=== PATIENT | female | born 1950 | race Caucasian/White ===

== ENCOUNTER 2023-05-21 11:10 | Day surgery (SDC) | payer OTHER, SELFPAY ==
[2023-05-21 11:30] VITALS: BP 129/78; PULSE 72; RESP 16; TEMP 36.6; O2SAT 96; BMI 22.2
[2023-05-21] MEDS: TETRACAINE 0.5% OPHTH 1 DROP EYE-LEFT (11:40)
[2023-05-21] MEDS: KETOROLAC OPHTH 0.5% 1 DROP EYE-LEFT ×3 (11:40→11:50)
--- NOTE | 2023-05-21 11:51 | SUR.PREOP ---
The eye drops brought by the patient (Ketorolac, Moxifloxacin and Prednisolone) are examined and I have determined they are labeled by the patient's pharmacy for this patient as prescribed by the surgeon. The bottles are intact, recently obtained and appear to be correct.
[2023-05-21] MEDS: SODIUM CHLORIDE 0.9 % (FLUSH) 10 ML SYRINGE IVF (11:53)
[2023-05-21] MEDS: TETRACAINE 0.5% OPHTH 2 DROP EYE-LEFT (12:35)
[2023-05-21] MEDS: BALANCED SALT IRRIG SOLN 15 ML EYE-LEFT (12:38)
[2023-05-21] MEDS: TRYPAN BLUE 0.5 ML SYRINGE EYE-LEFT (12:39)
[2023-05-21] MEDS: BRIMONIDINE TARTRATE 0.2% OPHTH 1 DROP EYE-LEFT (12:53)
--- NOTE | 2023-05-21 12:56 | P.PCN_ITS ---
Procedure Note Date Seen: 05/21/23 Will [facility] bill your pro fee for this procedure?: No Pre-op diagnosis: combined cataract left eye Procedure: kpe with pc iol os Procedure Description: NAME OF PROCEDURE Kelman phacoemulsification, left eye, with posterior chamber lens implant. PREOPERATIVE DIAGNOSIS Nuclear sclerotic cortical combined cataract, left eye. POSTOPERATIVE DIAGNOSIS Nuclear sclerotic cortical combined cataract, left eye. INDICATIONS FOR PROCEDURE The patient has noted that his vision in the left eye is failing. Severity 7/10. Unable to correct with glasses/contact lenses; has disabling night glare when driving, difficulty reading. Because of this, the patient elected to proceed with surgical repair. I have explained the risks, benefits, alternative treatments to the patient including possible loss of the eye under correction, over correction, need for more surgery. The patient understands, accepts, and elects to proceed with surgical repair. PROCEDURE The left eye was dilated with a combination 1% Mydriacyl, 2.5% phenylephrine with topical Ocufen and Vigamox applied to the corneal surface. The patient was brought to the main operating room where under IV sedation, after pausing to identify the correct patient, correct intraoperative lens, power 12.5 diopters, the left eye was prepped and draped in usual sterile fashion for intraocular surgery. A lid speculum was placed and a paracentesis created at 6 o'clock. The chamber was filled with OVD air and trypan dye and entered temporally with a keratome. A continuous tear capsulotomy was performed. The nucleus was h ydrodissected and emulsified with local anesthetic and emulsified in a chop technique in the capsular bag. Residual cortex was cleaned. The capsule was clear. At this point, ZCBOO 12.5 diopter posterior chamber lens implant was injected into the capsular bag and was well centered. Residual OVD was cleaned from behind the implant from the capsular bag. The incision hydrated and noted to be leak free. Topical Alphagan, pilocarpine, and Vigamox were applied to the corneal surface and the patient returned to recovery in good condition having tolerated the procedure well. CONDITION ON DISCHARGE Satisfactory. next
--- NOTE | 2023-05-21 12:58 | P.ANES_ITS ---
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
[2023-05-21 13:08] VITALS: BP 127/81; PULSE 74; RESP 16; TEMP 36.5; O2SAT 96
== END 2023-05-21 13:29 | disposition home or self-care (01) ==
PROVIDERS: PCP Family Medicine; Visit Provider Ophthalmology
PROC: (CPT 66984; principal; 2023-05-21 12:30)
DX: H25.812 Combined forms of age-related cataract, left eye (principal)
CPT/HCPCS: 66984; 00142; 99100; A9270; J2250; J3010; S0020; V2632

== ENCOUNTER 2023-06-18 11:11 | Day surgery (SDC) | payer OTHER, SELFPAY ==
[2023-06-18] MEDS: TETRACAINE 0.5% OPHTH 1 DROP EYE-RIGHT (11:22)
[2023-06-18 11:28] VITALS: BMI 22.1
[2023-06-18] MEDS: KETOROLAC OPHTH 0.5% 1 DROP EYE-RIGHT ×3 (11:29→11:49)
[2023-06-18 11:33] VITALS: BP 122/67; PULSE 65; RESP 16; TEMP 36.5; O2SAT 98
[2023-06-18] MEDS: SODIUM CHLORIDE 0.9 % (FLUSH) 10 ML SYRINGE IVF (11:58)
--- NOTE | 2023-06-18 12:29 | W.ANESCHARGE ---
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
[2023-06-18] MEDS: TETRACAINE 0.5% OPHTH 2 DROP EYE-RIGHT (12:46)
--- NOTE | 2023-06-18 12:48 | W.ANESCHARGE ---
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
[2023-06-18] MEDS: TRYPAN BLUE 0.5 ML SYRINGE EYE-RIGHT (12:49)
[2023-06-18] MEDS: BALANCED SALT IRRIG SOLN 15 ML EYE-RIGHT (12:50)
[2023-06-18] MEDS: BRIMONIDINE TARTRATE 0.2% OPHTH 1 DROP EYE-RIGHT (13:00)
--- NOTE | 2023-06-18 13:05 | PM.PROC ---
Procedure Note Date Seen: 06/18/23 Date of procedure: 06/18/23 Will [facility] bill your pro fee for this procedure?: No Pre-op diagnosis: combined form of cataract right eye Post-op diagnosis: other (pseudophakia right eye) Procedure Description: NAME OF PROCEDURE Richi phacoemulsification, right eye, with posterior chamber lens implant. PREOPERATIVE DIAGNOSIS Nuclear sclerotic cortical combined cataract, right eye. POSTOPERATIVE DIAGNOSIS Nuclear sclerotic cortical combined cataract, right eye. INDICATIONS FOR PROCEDURE The patient has noted that his vision in the right eye is failing. Severity 8/10. Unable to correct with glasses/contact lenses; has disabling night glare when driving, difficulty reading. Because of this, the patient elected to proceed with surgical repair. I have explained the risks, benefits, alternative treatments to the patient including possible loss of the eye under correction, over correction, need for more surgery. The patient understands, accepts, and elects to proceed with surgical repair. PROCEDURE The right eye was dilated with a combination 1% Mydriacyl, 2.5% phenylephrine with topical Ocufen and Vigamox applied to the corneal surface. The patient was brought to the main operating room where under IV sedation, after pausing to identify the correct patient, correct intraoperative lens, power 14.0 diopters, the right eye was prepped and draped in usual sterile fashion for intraocular surgery. A lid speculum was placed and a paracentesis created at 12 o'clock. The chamber was filled with OVD and entered temporally with a keratome. A continuous tear capsulotomy was performed. The nucleus was hydrodissected and emulsified with local anesthetic and emulsified in a chop technique in the capsular bag. Residual cortex was cleaned. The capsule was clear. At this point, ZCBOO 14.0 diopter posterior chamber lens implant was injected into the capsular bag and was well centered. Residual OVD was cleaned from behind the implant from the capsular bag. The incision hydrated and noted to be leak free. Topical Alphagan, pilocarpine, and Vigamox were applied to the corneal surface and the patient returned to recovery in good condition having tolerated the procedure well. CONDITION ON DISCHARGE Satisfactory.
[2023-06-18 13:20] VITALS: BP 136/75; PULSE 66; RESP 16; TEMP 36.4; O2SAT 97
== END 2023-06-18 13:25 | disposition home or self-care (01) ==
PROVIDERS: PCP Family Medicine; Visit Provider Ophthalmology
PROC: (CPT 66984; principal; 2023-06-18 12:30)
DX: H25.11 Age-related nuclear cataract, right eye (principal)
CPT/HCPCS: 66984; 00142; 99100; A9270; J2250; J3010; S0020; V2632

== ENCOUNTER 2024-03-15 09:23 | Outpatient (CLI) | payer OTHER, SELFPAY ==
--- OUTSIDE RECORDS SUMMARY | 2024-03-17 01:49 | XMS_ITS | Clinical Summary ---
Author Organization [employer] [facility] Address [place], [place] [address] Care Team Providers Care Shipbuilding Draftsperson Name Role Phone Arron Lima MD Primary [...] Infiltrating ductal carcinoma with apocrine features a. [place] grade: II of III, [place] score: 6 of 9 b. Angio-lymphatic invasion: [...] Encounters Date Type Department Care Team Description 03/16/2024 Telephone [facility] [address] [place] [address] Lottie Sherman NP Hospital F/U 03/15/2024 Nurse Triage [facility] [address] [place] [address] Connie Suarez, ZHANNA Stroke (Patient walked in thinking she is having a stroke/) 12/22/2023 1:00 PM CDT Nurse/Clinic Staff Only [facility] [address] [place] [address] Immunization/Inject ion (2ND TWINRIX VACCINE PER DR. GRANADOS ); Immunization/Inject ion 12/22/2023 Travel from Last 3 Months Immunizations Name Administration Dates Next Due COVID-19 vaccine (Moderna 100mcg/0.5mL) PF, MDV 12/31/2021 COVID-19 vaccine (TheraCoat-Bio NTech 30mcg/0.3mL) 12YO+ BIVALENT PF, MDV 02/11/2023 COVID-19 vaccine (TheraCoat-Bio NTech 30mcg/0.3mL) PF, MDV 06/21/2021,12/12/2020,11/21/2020 HepA-HepB (Twinrix) [...] ca ncer Maternal Aunt Mother (Age 80) [place] Neg. 1 Neg. 2 Sister 1 Sister [...] Comments Blood Pressure 119/72 11/21/2023 1:06 PM RETAIL [employer]NER Pulse 86 11/21/2023 1:06 PM [employer]AIL [employer]NER Temperature 36.4 ??C (97.5 ??F) 11/21/2023 1:09 PM CS T Respiratory Rate - - Oxygen Saturation 98% 11/21/2023 1:06 PM RETAIL PL[employer]NER Inhaled Oxygen Concentration - - Weight 57.4 kg (126 lb 9.6 oz) 11/21/2023 1:06 P M [employer]AIL [employer]NER Height 160 cm (5' 2.99) 05/19/2023 11:03 AM CDT Body Mass Index 22.43 05/19/2023 11:03 AM CDT Plan of Treatment Upcoming Encounters Date Type Department Care Team (Late st Contact Info) Description 03/18/2024 4:10 PM CDT Office Visit [facility] [address] [place] [address] Arron Lima MD [address] [place] [address] 05/27/2024 1:30 PM CDT Nurse/Clinic Staff Only [facility] [address] [place] [address] Health Maintenance Due Date Last Done Comments Pneumococcal series for age 65+ (1 of 1 - PCV) 2015 Mammogram for age 45-75 02/07/2023 02/08/20, 09/24/2016, 10/21/2014, Additional history exists COVID-19 vaccine series ( season) 2023 07/22/2023, 02/11/2023, 06/19/2022, Additional history [...] breast ANTI HCV Routine 09/24/2016 8:31 AM RETAIL PLANNER Need for hepatitis C screening test from Last 3 Months or Most Recently Relevant to Health Maintenance Results * OCCULT BLOOD IFOBT STOOL (02/15/2023 4:09 PM CDT) STOOL BLOOD ,IFOBT Negative Negative 02/21/2023 8:17 AM CDT [facility] Stool STOOL SPECIMEN / Unknown Non-Blood / Unknown 02/15/2023 4:09 PM CDT 02/19/2023 4:10 PM CDT Arron Lima MD [facility] [address] [place] [address], * LIPID PANEL W REFLEX MEASURED LDL (02/11/2023 4:25 PM CDT) CHOLESTEROL,TOTAL 170 100 - 199 mg/dL 02/12/2023 3:29 PM CDT [facility] Comment: Cholesterol, Total Reference Ranges Desirable <200 mg/dL Borderline 200-239 mg/dL High >=240 mg/dL TRIGLYCERIDES 120 <150 mg/dL 02/12/2023 3:29 PM CDT [facility] HDL CHOLESTEROL 62 >40 mg/dL 3:29 PM CDT [facility] NON-HDL CHOLESTEROL 108 <145 mg/dl 02/12/2023 3:29 PM CDT [facility] CHOL/HDL RATIO 2.74 <4.50 02/12/2023 3:29 PM CDT [facility] LDL CHOLESTEROL 84 <=130 mg/dL 02/12/2023 3:29 PM CDT [facility] VLDL CHOLESTEROL 24 <=30 mg/dL 02/12/2023 3:29 PM CDT [facility] PROVIDER ORDERED STATUS RANDOM 02/12/2023 3:29 PM CDT [facility] Blood BLOOD SPECIMEN / Unknown Venipuncture / Unknown 02/11/2023 4:25 PM CDT 02/11/2023 4:26 PM CDT Arron Lima MD CHEMISTRY [facility] [address] [place] [address], [place] * (ABNORMAL) XR DXA BONE DENSITY [...] if therapy initiated to assess therapeutic efficacy. Margaret Sethi PA-C Narrative 02/08/2022 10:56 AM CDT For Patients: Results are automatically released to your [facility] account once available, in compliance with federal regulations. This means that you may see your results before your provider has had a chance to review them. Please allow 2-3 business days for your provider to comment on the results. XR DXA Bone Mineral Density (BMD) EXAM LOCATION: [address] [address] PATIENT NAME: Hamida Diaz DATE OF : [...] two scanners are made by the same supervising deputy. PROCEDURE: Dual-energy x-ray absorptiometry performed with routine [...] Z-Score: + 0.0 Change from prior in 2015: ??Decrease 3.6%. Right femoral neck BMD: 0.804 g/cm2 T-Score: - 1.7 Z-Score: + 0.3 Change from prior in 2014: ??Decrease 4.1%. Left hip BMD: 0.733 g/cm2 [...] For Patients: As a result of the Century Cures Act, medical imaging exams and procedure reports are released immediately into your electronic medical record. You may view this report before your referring provider. If you have questions, please contact your health care provider. XR MAMMO NICOLA BILAT SCREEN [[id number]] CLINICAL HISTORY: ??This is an asymptomatic 71 y.o. patient. INDICATION FOR EXAM: Mammogram Screening. TECHNIQUE: CC & MLO views were obtained. ??This study was evaluated with the assistance of Computer-Aided Detection. Breast Tomosynthesis was used in interpretation. COMPARISON FILM: Yes 09/24/16 [facility] 10/21/14 [facility] FINDINGS: ??The breasts are heterogeneously dense, which may obscure small masses. There are no dominant masses, suspicious micro calcifications or areas of architectural distortion. Arron Lima MD MAMMO * ANTI HCV (09/24/2016 8:31 AM RETAIL PLANNER) HEPATITIS C ANTIBODY Non-Reacti ve Non-Reacti ve 09/24/2016 2:05 PM RETAIL [employer]NER [facility] Blood BLOOD SPECIMEN / Unknown Venipuncture / Unknown 09/24/2016 8:31 AM RETAIL PLANNER 09/24/2016 8:31 AM RETAIL PL[employer]NER Narrative [facility] - 09/24/2016 2:05 PM RETAIL [employer]NER Antibodies to HCV not detected; does not exclude the possibility of exposure to HCV. Arron Lima MD SEND OUTS [facility] 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
== END 2024-03-15 09:24 | disposition home or self-care (01) ==
LOC: AMB 03-17 01:47
PROVIDERS: PCP Family Medicine; Visit Provider Emergency Medicine
DX: R41.82 Altered mental status, unspecified (principal); R20.2 Paresthesia of skin
CPT/HCPCS: A0425; A0427

== ENCOUNTER 2024-03-15 09:50 | Emergency (ER) | payer OTHER, SELFPAY ==
[2024-03-15 09:55] VITALS: BP 156/77; PULSE 70; RESP 18
[2024-03-15 09:59] VITALS: BP 156/77; PULSE 75; RESP 18; TEMP 36.7; O2SAT 97; BMI 21.0
--- NOTE | 2024-03-15 10:01 | ED.GENADULT ---
HPI - General Adult General Date Seen: 03/15/24 Chief complaint: Weakness Stated complaint: weakness Time Seen by Provider: 03/15/24 10:01 History of Present Illness HPI narrative: This is a 73-year-old female who was referred to the ER today from the [facility] clinic for possible stroke symptoms. A stroke team activation occurred when the patient arrived. I evaluated the patient briefly before she went to CT scan. Patient has a past medical history of breast cancer, diagnosed and treated in 2010 and now thought to be in remission for over a decade. She says she is otherwise healthy. No history of any hypertension, dyslipidemia, coronary disease, AFib, previous history of strokes. No history of diabetes. The weight she does not take any long-term prescription medications. Her fell last week and so she was bringing him to the clinic this morning to be checked out. A flu she was helping loading him into the car because he needs a lot of assistance and was feeling normally this morning. She and her left home shortly before 9:00 a.m. and within a few blocks of leaving the home she began to have symptoms. She felt dizzy and unsteady and she felt like she was little bit weak and tingly in her left arm. She was worried she may not be able to drive to the clinic but ultimately she got well enough that she did drive all the way to the clinic. When she arrived to the clinic she was apparently found to have some asymmetric left hand spring repairer strength weakness and possibly a left facial droop so she was referred here to the ER right away for stroke team evaluation. Her symptoms cap slowly improving so by Around the time she got here to the ER she says her left-sided weakness is gone. She still perhaps has some very mild unsteadiness but actually feels fine while she is resting in bed. She does not know if she would feel unsteady if she got up to walk or not. No other symptoms. No headache. No visual disturbance. No leg weakness. No chest pain. No palpitations. No shortness of breath. No fever. No recent falls. No neck pain. She has no history of diabetes, hypertension, high cholesterol. Her mother of a stroke in her 80s. Her father had possibly CHF. Medical record for the patient access through [facility]. She is currently on calcium/vitamin-D, Diamox Related Data Home Medications ?Medication ?Instructions ?Recorded ?Confirmed calcium carb-ergocalciferol (vit 1 tab PO DAILY 05/20/23 06/18/23 D2) 600 mg calcium-200 unit tablet Previous Rx's ?Medication ?Instructions ?Recorded clopidogrel 75 mg tablet (Plavix) 75 mg PO DAILY #28 tabs 03/15/24 Allergies Allergy/AdvReac Type Severity Reaction Status Date / Time No Known Drug Allergies Allergy Verified 03/15/24 10:05 [facility] Medical History (Updated 03/15/24 @ 12:46 by Je Robin MD) Breast cancer ?C50.919 - Malignant neoplasm of unspecified site of unspecified female breast (ICD-10) Prediabetes ?R73.03 - Prediabetes (ICD-10) Osteoporosis ?M81.0 - Age-related osteoporosis without current pathological fracture (ICD-10) Surgical History History of tonsillectomy and adenoidectomy ?Z90.89 - Acquired absence of other organs (ICD-10) Hx of section ?Z98.891 - History of uterine scar from previous surgery (ICD-10) History of lumpectomy of left breast ?Z98.890 - Other specified postprocedural states (ICD-10) Social History Smoking Status: Never smoker How often do you have a drink containing alcohol: monthly or less How many standard drinks containing alcohol do you have on a typical day: 1 or 2 How often do you have six or more drinks on one occasion: Never AUDIT-C Alcohol total score: 1 Non-prescribed substance use: denies use Caffeine: Yes Are you using contraception or practicing any form of control: No Exam Narrative: Exam Narrative: Primary Survey: A- patent. Speaking clearly. Phonation normal. No stridor. B- breathing easily. Lung sounds clear and equal. Oxygen saturation normal on room air C- no active bleeding. Blood pressure stable. Symmetric pulses and cap refill in 4 extremities. D- alert and oriented x3. GCS 15. No focal deficits. Constitutional: Appears well-developed and well-nourished. Alert. Conversant, and polite. She has a fairly detailed, chronological historian.. Non toxic. HENT: Head: Atraumatic. Nose: Nose normal. Mouth/Throat: Oral mucosa is clear and moist. no trismus. Pharynx normal. Tonsils symmetric. No tonsillar enlargement, erythema, or exudate. Eyes: Conjunctivae normal. EOM normal. Pupils equal, round, and reactive to light. No scleral icterus. Neck: Normal range of motion. Neck supple. No tracheal deviation present. No JVD Cardiovascular: Normal rate, regular rhythm. No gallop. No friction rub. No murmur heard. Symmetric radial artery pulses Pulmonary/Chest: Effort normal. No stridor. No respiratory distress. No wheezes. No rales. No rhonchi . No tenderness. Abdominal: Soft.No distension. No mass. No tenderness. No rebound. No guarding. Musculoskeletal: RUE: Normal range of motion. No tenderness. No deformity LUE: Normal range of motion. No tenderness. No deformity RLE: Normal range of motion. No edema. No tenderness. No deformity LLE: Normal range of motion. No edema. No tenderness. No deformity Skin: Skin is warm and dry. No rash noted. No pallor. Normal capillary refill. Psychiatric: Normal mood. Normal affect. Neurological: Mental status normal. Attention normal. Alert and oriented x3. GCS 15. Memory normal. Speech fluent. Cognition normal. Cranial Nerves intact II-XII except I did not formally test gag or visual acuity. EOMI. Palate elevates symmetrically and tongue protrudes in the midline. Strength: 5/5 trapezius on the right and left 5/5 deltoid on the right and left 5/5 biceps on the right and left 5/5 triceps on the right and left 5/5 hand spring repairer on the right and left 5/5 thumb opposition on the right and left 5/5 finger abduction on the right and left 5/5 hip flexors (L3) on the right and left 5/5 quadriceps (L4) on the right and left 5/5 tibialis anterior on the right and left 5/5 EHL (L5) on the right and left 5/5 gastrocnemius (S1) on the right and left 5/5 hamstring on the right and left Sensation intact to light touch in both upper extremities (C4-T1) Sensation intact to light touch in Both lower extremities (L4-S1). Finger to nose and coordination normal. Gait normal, but the patient says she feels symptomatically lightheaded when standing up. No ataxia. NIHSS = 0 Const: Vital Signs, click to edit/add: Vital Signs - 24 hr 03/15/24 09:59 Temperature 98.0 F Pulse Rate [Right Pulse Oximeter] 75 Respiratory Rate 18 Blood Pressure [Ri ght Upper Arm] 156/77 H Pulse Oximetry 97 Oxygen Delivery Me thod Room Air Course Vital Signs Vital signs: Initial Vital Signs Temperature 98.0 F 03/15/24 09:59 Temperature Source Temporal Artery Scan 03/15/24 09:59 Pulse Rate 75 03/15/24 09:59 Pulse Rhythm Regular 03/15/24 09:59 Respiratory Rate 18 03/15/24 09:59 Blood Pressure 156/77 H 03/15/24 09:59 Blood Pressure Mean 103 03/15/24 09:59 Blood Pressure Position Supine 03/15/24 09:59 Pulse Oximetry 97 03/15/24 09:59 Oxygen Delivery Method Room Air 03/15/24 09:59 Vital Signs Temperature 98.0 F 03/15/24 09:59 Pulse Rate 75 03/15/24 09:59 Respiratory Rate 18 03/15/24 09:59 Blood Pressure 156/77 H 03/15/24 09:59 Pulse Oximetry 97 03/15/24 09:59 Oxygen Delivery Method Room Air 03/15/24 09:59 Temperature 98.0 F 03/15/24 09:59 Pulse Rate 75 03/15/24 09:59 Respiratory Rate 18 03/15/24 09:59 Blood Pressure 156/77 H 03/15/24 09:59 Pulse Oximetry 97 03/15/24 09:59 Oxygen Delivery Method Room Air 03/15/24 09:59 Medications Administered Medications: Discontinued Medications Generic Name Dose Route Start Last Admin Trade Name Freq PRN Reason Stop Dose Admin Aspirin 325 mg 03/15/24 11:01 03/15/24 12:00 Aspirin Ec 325 Mg Tablet PO 03/15/24 11:02 325 mg ONCE ONE Administration Clopidogrel Bisulfate 300 mg 03/15/24 11:01 03/15/24 11:13 Clopidogrel 300 Mg Tablet PO 03/15/24 11:02 300 mg ONCE ONE Administration Sodium Chloride 1,000 mls @ 1,000 mls/hr 03/15/24 10:45 03/15/24 12:40 0.9 % Sodium Chloride 1000 Ml IV 03/15/24 11:44 Infused .Q1H RADHA Infusion Medical Decision Making MDM Narrative Medical decision making narrative: Very pleasant 73-year-old female was referred to the ER today from clinic for evaluation of acute onset of neurologic symptoms including dizziness as well as left facial droop and left arm weakness and numbness that occurred this morning 1st beginning shortly before 9:00 a.m. while she was driving her his doctor appointment. She had detectable symptoms when she was at the [facility] clinic but symptoms had essentially resolved by the time she arrived here in the ER and we were activating her stroke team. History is consistent with TIA. Head CT is negative for intracranial hemorrhage. CT angiogram of her head neck shows no LVO or any high-grade stenosis requiring carotid endarterectomy. Brain MRI confirms no acute infarct. EKG shows sinus rhythm. Blood pressure is marginally 145/80. The ABCD2 score is 5 which does put her at high risk. In discussion with Stroke Neurology, Dr. Case, plan of care will be to initiate dual anti-platelet therapy. She received aspirin 325 mg p.o. here in the ER as well as a 300 mg Plavix load. She will continue on dual anti-platelet therapy-aspirin 325mg daily and Plavix 75 mg daily for the next 4 weeks. She already has an appointment set up on with her primary care provider for further workup. They will consider getting outpatient echocardiogram an outpatient Holter monitor look for paroxysmal AFib. She will also call to schedule her follow-up appointment with the [facility] stroke/TIA [facility]. She will call the number today to set up an appointment for further evaluation. Discussed with the patient that with a TIA there is risk for recurrent stroke or TIA and she will return to the ER immediately with any recurrent neurologic symptoms, or if she has any other concerns. Incidental note is made of a nodule adjacent to her parotid gland. She indicates that this is been palpably present and stable for several years. Nonetheless she will follow up outpatient with her primary care provider for further evaluation with ultrasound as suggested by Radiology. Lab Data Labs: Lab Results 03/15/24 03/15/24 03/15/24 Range/Units 10:10 10:14 10:30 WBC 7.63 (4.50-11.00) K/uL RBC 4.65 (4.00-5.20) m/uL Hgb 13.7 (12.0-16.0) gm/dL Hct 41.7 (33.0-51.0) % MCV 90 (80-100) fL MCH 30 (26-34) pg MCHC 33 (32-36) gm/dL RDW Coeff of Nitesh 13.1 (11.5-15.5) % Plt Count 233 (140-440) K/uL Neut % (Auto) 69.5 (42.0-72.0) % Lymph % (Auto) 20.1 (20-44) % [place] % (Auto) 6.6 (0.0-11.0) % Eos % (Auto) 3.4 (0.0-7.0) % Baso % (Auto) 0.3 (0.0-3.0) % Neut # (Auto) 5.31 (1.7-7.0) K/uL Lymph # (Auto) 1.53 (0.90-2.90) K/uL [place] # (Auto) 0.50 (0.00-0.90) K/UL Eos # (Auto) 0.26 (0.00-0.50) K/uL Baso # (Auto) 0.02 (0.00-0.30) K/uL Abs Immat Gran (auto) 0.01 (0.00-0.30) K/uL Imm/Tot Granulo (auto) 0.1 % INR 0.92 (0.91-1.10) Sodium 141 (135-149) mmol/L Potassium 3.9 (3.6-5.1) mmol/L Chloride 106 (96-114) mmol/L Carbon Dioxide 29 (20-32) mmol/L Anion Gap 6 L (7-15) mEq/L BUN 16 (7-30) mg/dL Creatinine 0.7 (0.5-1.5) mg/dL Estimated Creat Clear 46.64 Estimated GFR 91 ml/min Glucose 96 (60-115) mg/dL Lactate 1.7 (0.5-1.9) mmol/L Calcium 9.3 (8.4-10.6) mg/dL Troponin I < 0.01 L (0.01-0.04) ng/mL POC Creatinine 0.8 (0.6-1.3) mg/dl Imaging Data MR brain: Attestation: I have reviewed the pertinent imaging results. Radiologist's impression: Impression: 1. No acute/subacute infarct. 2. Mild chronic ischemic microvascular disease. CTA Head: Attestation: I have reviewed the pertinent imaging results. Radiologist's impression: IMPRESSION: Patent proximal intracranial vasculature without intracranial aneurysms. CT A neck: Attestation: I have reviewed the pertinent imaging results. Radiologist's impression: IMPRESSION: Patent cervical vasculature. CT scan - head: Attestation: I have reviewed the pertinent imaging results. Radiologist's impression: IMPRESSION: 1. No acute hemorrhage or large territory infarct. 2. 1.4 centimeter left parotid lesion. Consider outpatient ultrasound for further evaluation. Discharge Plan Discharge Clinical Impression: Transient ischemic attack, Lesion of parotid gland Patient Disposition: Home, Self-Care Condition: Stable Instructions: Transient Ischemic Attack (ED) Additional Instructions: As we discussed, please return to the ER immediately if you have any recurrent stroke symptoms so or any other concerns. To help prevent recurrent strokes you should start on aspirin 325 mg once daily and Plavix 75 mg daily. You can use enteric coated aspirin to help reduce stomach upset. Plavix is a prescription medication and you can peanut picker his prescription at [place]. Take your next dose of Plavix tomorrow morning. Please follow-up with your regular doctor on for a checkup. Your doctor will likely arrange outpatient heart monitor and possibly an echocardiogram. Also ask your doctor to arrange an ultrasound for your left parotid gland. Also please follow-up with the [facility] stroke/TIA Clinic. Call [phone] to arrange a ER follow-up appointment. Prescriptions: New clopidogrel [Plavix] 75 mg tablet 75 mg PO DAILY Qty: 28 2RF No Action calcium carbonate-vitamin D2 600 mg calcium- 200 unit tablet 1 tab PO DAILY Follow Up/Referrals: Arron Lima MD [Primary Care Provider] - Stand Alone Forms: [employer] Info Instructions
[2024-03-15 10:13] VITALS: BP 145/82; PULSE 79
--- NOTE | 2024-03-15 10:13 | CRLHL7_ITS ---
For Patients: As a result of the Century Cures Act, medical imaging exams and procedure reports are released immediately into your electronic medical record. You may view this report before your referring provider. If you have questions, please contact your health care provider. CT ANGIOGRAM NECK DATE: 03/15/2024 CLINICAL HISTORY: Patient with focal neurological deficits. TECHNIQUE: Standard helical CT image acquisition of the neck up to the skull base after bolus intravenous contrast enhancement. 2D and 3D MIP images for post-processing were performed and interpreted on an independent workstation and 3D images were permanently archived. COMPARISON: CT same day. FINDINGS: The origins of the great vessels from the aortic arch are patent. The origin of the right vertebral artery is patent. The origin of the left vertebral artery is patent. The common carotid arteries are patent. There is no stenosis at the origin of the right internal carotid artery. There is no stenosis at the origin of the left internal carotid artery. The rest of the cervical segments of the internal carotid arteries are patent up to the skull base. The right vertebral artery is dominant. The cervical segments of the vertebral arteries are patent up to the skull base. The visualized lung apices are unremarkable. The thyroid gland demonstrates an 8mm hypodense nodule in its left lobe, likely a cyst. The soft tissues of the neck are unremarkable. There are degenerative changes in the cervical spine. IMPRESSION: Patent cervical vasculature. Findings were communicated to Dr. Case at 10:40 AM. Please note that all CT scans at this facility use dose modulation, iterative reconstruction, and/or weight-based dosing when appropriate to reduce radiation dose to as low as reasonably achievable. Dictated by: Pippa Ny MD @ 03/15/2024 10:40:51 (Electronically Signed)
--- NOTE | 2024-03-15 10:14 | CRLHL7_ITS ---
For Patients: As a result of the Century Cures Act, medical imaging exams and procedure reports are released immediately into your electronic medical record. You may view this report before your referring provider. If you have questions, please contact your health care provider. INDICATION: left facial droop, left arm weakness, unsteadiness TECHNIQUE: CT of the head was performed without IV contrast. COMPARISON: None. FINDINGS: Parenchyma: No acute hemorrhage, infarction, or mass. Mild scattered periventricular white matter hypoattenuation is nonspecific and is favored to represent chronic small vessel ischemic disease. Ventricles and extra-axial spaces: Appropriate for age. Visualized paranasal sinuses: Moderate left maxillary sinus mucosal retention cyst versus polyp. Mastoid air cells: Clear. Bones: No focal abnormality. Additional comment: Bilateral lens surgery. 1.4 centimeter left parotid lesion (5/4). IMPRESSION: 1. No acute hemorrhage or large territory infarct. 2. 1.4 centimeter left parotid lesion. Consider outpatient ultrasound for further evaluation. Please note that all CT scans at this facility use dose modulation, iterative reconstruction, and/or weight-based dosing when appropriate to reduce radiation dose to as low as reasonably achievable. Dictated by Yovani Grewal MD @ 03/15/2024 10:30:37 AM (Electronically Signed)
--- NOTE | 2024-03-15 10:14 | CRLHL7_ITS ---
For Patients: As a result of the Century Cures Act, medical imaging exams and procedure reports are released immediately into your electronic medical record. You may view this report before your referring provider. If you have questions, please contact your health care provider. CT ANGIOGRAM HEAD DATE: 03/15/2024 CLINICAL HISTORY: Patient with focal neurological deficits. TECHNIQUE: Standard helical CT image acquisition through the intracranial circulation following intravenous administration of contrast material with bolus tracking. 2D and 3D MIP images for post-processing were performed and interpreted on an independent workstation and 3D images were permanently archived. COMPARISON: CT same day. FINDINGS: There is no proximal intracranial large vessel occlusion. There is no intracranial aneurysm. The right internal carotid artery is normal. The right middle cerebral artery and its branches are normal. The right anterior cerebral artery and its branches are normal. The left internal carotid artery is normal. The left middle cerebral artery and its branches are normal. The left anterior cerebral artery and its branches are normal. The anterior communicating artery is well visualized and appears normal. The right vertebral artery and PICA are normal. The left vertebral artery and PICA are normal. The right vertebral artery is dominant. The basilar artery is patent and appears normal. The right posterior cerebral artery is normal. The left posterior cerebral artery is normal. The visualized venous structures are patent. IMPRESSION: Patent proximal intracranial vasculature without intracranial aneurysms. Findings were communicated to Dr. Case at 10:40 AM. Please note that all CT scans at this facility use dose modulation, iterative reconstruction, and/or weight-based dosing when appropriate to reduce radiation dose to as low as reasonably achievable. Dictated by: Pippa Ny MD @ 03/15/2024 10:42:00 (Electronically Signed)
[2024-03-15 10:32] LABS: Creatinine, Point-of-Care* 0.8 mg/dl (0.6-1.3)
--- OUTSIDE RECORDS SUMMARY | 2024-03-15 10:35 | XMS_ITS | Clinical Summary ---
Author Organization [facility] Address [place], [place] [address] Care Team Providers Care Furniture Builder Name Role Phone Arron Lima MD Primary Care Provider Allergies No known active allergies Medications Medication Sig Dispensed Refills Start Date End Date Status CALCIUM + VITAMIN D 600 MG (1,500)-200 UNIT TABIndications:Osteop orosis, unspecified 0 05/30/2008 Activ e acetaZOLAMIDE (DIAMOX) 125 mg tabletIndications:Cou nseling about travel Take 125-250 mg by mouth two times daily. Begin 1 day before through 2 days after arriving at highest altitude. 10 Tablet 11/21/2023 Active typhoid vaccin,live,attenuate d (Vivotif Martha Vaccine) 2 billion unit capsuleIndications:Ty phoid-paratyphoid vaccination Take 1 capsule by mouth with lukewarm water on empty stomach on days 1,3,5 and 7. 4 Capsule 11/21/2023 Active Active Problems Problem Noted Date Diagnosed Date Prediabetes 06/01/2018 Trigger finger 10/22/2014 Breast cancer 04/09/2011 Overview: Left breast cancer. 02/2011 1. Infiltrating ductal carcinoma with apocrine features a. [place] grade: II of III, [place] score: 6 of 9 b. Angio-lymphatic invasion: Absent c. Associated DCIS: Present d. Subtype of DCIS: Cribriform and apocrine e. Grade of DCIS: 3 estrogen receptor: NEGATIVE (0.0% of tumor nuclear area) Progesterone receptor: NEGATIVE (0.0% of tumor nuclear area) HER2 amplification: NEGATIVE (1.18 HER2/CEP17 ratio by FISH) Osteoporosis, unspecified 12/01/2006 Overview: dexa 2006 t score of spine -2.5, improved from 2004 after being on estrogen Resolved Problems Problem Noted Date Diagnosed Date Resolved Date Distal radial fracture 09/09/201203/05 Trapezium fracture 09/09/2012 5 Headache(784.0) 05/31/2009 10/21/2014 Overview: Improved with hrt Symptomatic menopausal or fe male climacteric states 12/01/2006 01/31/2021 Encounters Date Type Department Care Team Description 03/15/2024 Nurse Triage [facility] [address] [place] [address] Connie Suarez RN Stroke (Patient walked in thinking she is having a stroke/) 12/22/2023 1:00 PM CDT Nurse/Clinic Staff Only [facility] [address] [place] [address] Immunization/Injecti on (2ND TWINRIX VACCINE PER DR. GRANADOS ); Immunization/Injecti on 12/22/2023 Travel from Last 3 Months Immunizations Name Administration Dates Next Due COVID-19 vaccine (Moderna 100mcg/0.5mL) PF, MDV 12/31/2021 COVID-19 vaccine (nPickerBio NTech 30mcg/0.3mL) 12YO+ BIVALENT PF, MDV 02/11/2023 COVID-19 vaccine (Altimet-Bio NTech 30mcg/0.3mL) PF, MDV 06/21/2021,12/12/2020,11/21/2020 HepA-HepB (Twinrix) 12/22/2023,11/21/2023 Influenza, High-dose Quadriv alent Inactivated 07/22/2023,07/22/2022,06/20/2021,2019 Td (Age >=7 Years) 05/30/2001 Tdap 02/05/2021,06/19/2009 Zoster (Shingrix-RZV, recombinant) 04/23/2019, Zoster (Zostavax-ZVL, live) 09/07/2012 Family History Medical History Relation Name Comments Other Brother leukemia, of mva at 90. Heart Disease Father probably late 50's Stomach cancer Father d81 Cancer-breast Maternal Aunt Dementia Mother Heart Disease Mother after 65 Hypertension Mother Diabetes Neg. 1 Cancer-ovarian Neg. 2 Cancer-breast Sister 1 TWO SISTERS WI TH BREAST CANCER Cancer Sister 2 cervical ca lat e 60's Dementia Sister 2 Dementia Sister 3 Heart failure Sister 3 at 86 Anesthesia Problem No Family History Cancer-colon No Family History Relation Name Status Comments Brother Father (Age 82) stomach ca ncer Maternal Aunt Mother (Age 80) VA Neg. 1 Neg. 2 Sister 1 Sister 2 Sister 3 Social History Tobacco Use Types Packs/Day Years Used Date Smoking Tobacco: Never Smokeless Tobacco: Never Tobacco Cessation:Counseling Given: No Alcohol Use Standard Drinks/Week Comments Yes 0 (1 standard drink = 0.6 oz pur e alcohol) 1-2 times a month PHQ-2 Answer Date Recorded PHQ-2 TOTAL SCORE 0 02/11/2023 Social Connections Answer Date Recorded Frequency of Communication with Friends and Fami ly 0 05/19/2023 Financial Resource Strain Answer Date R ecorded Difficulty of Paying Living Expenses 3 05/19/2023 Difficulty of Paying Living Expenses Not on file 05/19/2023 Food Insecurity Answer Date Recorded Worried About Running Out of Food in the Last Ye ar 1 05/19/2023 Transportation Needs Answer Date Record ed Lack of Transportation (Medical) 1 05/19/2023 Housing Stability Answer Date Recorded Unable to Pay for Housing in the Last Year 1 05/19/2023 Sex and Gender Information Value Date Recorded Sex Assigned at Not on file Gender Identity Not on file Sexual Orientation Not on file Obstetrics History Para Term AB IAB SAB Ectopic Multiple Livin g Live Births 2 2 2 Date Outcome GA Total Labor Labor/2nd/3rd Weight Sex Type Anes PTL Caro A1 A5 Name Clin Para Para Last Filed Vital Signs Vital Sign Reading Time Taken Comments Blood Pressure 119/72 11/21/2023 1:06 PM MANAGER SALES SU[employer] Pulse 86 11/21/2023 1:06 PM [employer]NAGER SALES [employer] Temperature 36.4 ??C (97.5 ??F) 11/21/2023 1:09 PM CS T Respiratory Rate - - Oxygen Saturation 98% 11/21/2023 1:06 PM MANAGER SALES SU[employer] Inhaled Oxygen Concentration - - Weight 57.4 kg (126 lb 9.6 oz) 11/21/2023 1:06 P M [employer]GER SALES [employer] Height 160 cm (5' 2.99) 05/19/2023 11:03 AM CDT Body Mass Index 22.43 05/19/2023 11:03 AM CDT Plan of Treatment Upcoming Encounters Date Type Department Care Team (Late st Contact Info) Description 03/18/2024 4:10 PM CDT Office Visit [facility] [address] [place] [address] Arron Lima MD [address] [place] [address] 05/27/2024 1:30 PM CDT Nurse/Clinic Staff Only [facility] [address] [place] [address] Health Maintenance Due Date Last Done Comments Pneumococcal series for age 65+ (1 of 1 - PCV) 2015 Mammogram for age 45-75 02/07/2023 02/08/20, 09/24/2016, 10/21/2014, Additional history exists COVID-19 vaccine series (2022- season) 2023 07/22/2023, 02/11/2023, 06/19/2022, Additional history exists Depression screening for age 12+ 02/12/2024 02/11/2023, 02/08/2022, 02/07/2022, Additional history exists Medicare Wellness for age 65+ 02/12/2024, 02/06/2022, 01/31/2021, Additional history exists Fecal testing non-DNA (FIT,FOBT,iFOBT) for age 45-75 02/16/2024 02/15/2023, 11/10/2021, 07/05/2020, Additional history exists BMI (ht and wt on same day) for age 18+ 05/19/2024 05/19/2023, 02/11/2023, 02/06/2022, Additional history exists Influenza for age 65+ 05/23/2024 07/22/2023 , 07/22/2022, 06/20/2021, Additional history exists Lipids for age 45-75 02/12/2028 02/11/2023, 02/06/2022, 01/31/2021, Additional history exists Tetanus booster 02/05/2031 02/05/2021, 05/24, 05/30/2001 Hepatitis C screening for ag e 18-79 Completed 09/24/2016 Zoster (shingles) series for age 50+ Completed 04/23/2019, 12/15/2018, 09/07/2012 Tdap Completed 02/05/2021, 06/19/2009 DEXA/DXA scan for age 65+ Completed 2021, 08/29/2015, 05/31/2010, Additional history exists Procedures Procedure Name Priority Date/Time Associated Diagnosis Comments OCCULT BLOOD IFOBT STOOL Routine 02/15/2023 4:09 PM CDT Screening for colon cancer LIPID PANEL W REFLEX MEASURED LDL Routine 02/11/2023 4:25 PM CDT Hyperlipidemia, unspecified hyperlipidemia type XR DXA BONE DENSITY 2 SITES AXIAL Routine 02/07/2022 11:18 AM CDT Post-menopausal XR MAMMO NICOLA BILAT SCREEN Routine 02/07/2022 10:50 AM CDT Post-menopausal Encounter for screening mammogram for malignant neoplasm of breast ANTI HCV Routine 09/24/2016 8:31 AM MANAGER SALES SU[employer] Need for hepatitis C screening test from Last 3 Months or Most Recently Relevant to Health Maintenance Results * OCCULT BLOOD IFOBT STOOL (02/15/2023 4:09 PM CDT) STOOL BLOOD ,IFOBT Negative Negative 02/21/2023 8:17 AM CDT [facility] Stool STOOL SPECIMEN / Unknown Non-Blood / Unknown 02/15/2023 4:09 PM CDT 02/19/2023 4:10 PM CDT Arron Lima MD LABORATORY [facility] [address] [place] [address], * LIPID PANEL W REFLEX MEASURED LDL (02/11/2023 4:25 PM CDT) CHOLESTEROL,TOTAL 170 100 - 199 mg/dL 02/12/2023 3:29 PM CDT [facility] Comment: Cholesterol, Total Reference Ranges Desirable <200 mg/dL Borderline 200-239 mg/dL High >=240 mg/dL TRIGLYCERIDES 120 <150 mg/dL 02/12/2023 3:29 PM CDT [facility] HDL CHOLESTEROL 62 >40 mg/dL 3:29 PM CDT [facility] NON-HDL CHOLESTEROL 108 <145 mg/dl 02/12/2023 3:29 PM CDT [facility] CHOL/HDL RATIO 2.74 <4.50 02/12/2023 3:29 PM CDT [facility] LDL CHOLESTEROL 84 <=130 mg/dL 02/12/2023 3:29 PM CDT [facility] VLDL CHOLESTEROL 24 <=30 mg/dL 02/12/2023 3:29 PM CDT [facility] PROVIDER ORDERED STATUS RANDOM 02/12/2023 3:29 PM CDT [facility] Blood BLOOD SPECIMEN / Unknown Venipuncture / Unknown 02/11/2023 4:25 PM CDT 02/11/2023 4:26 PM CDT Arron Lima MD CHEMISTRY [facility] [address] [place] [address], [place] * (ABNORMAL) XR DXA BONE DENSITY 2 SITES AXIAL (02/07/2022 11:18 AM CDT) Anatomical Region Laterality Modality Spine, HIPS, HIPL, HIPR Other Impressions 02/08/2022 10:56 AM CDT Osteoporosis. Worsening BMD across sites from prior scan, most significant at hips. RECOMMENDATIONS: The National Osteoporosis Foundation recommends pharmacologic treatment for patients with T-scores of -2.5 or less, patients with prior history of fragility fractures, or patients with 10-year probability of greater than 3% at hips or greater than 20% of suffering major osteoporotic fractures. Recommend continued optimization of calcium and vitamin D intake through dietary means and/or supplementation and regular exercise. Consider pharmacologic therapy for osteoporosis. Follow-up bone density reading in 2 years if therapy initiated to assess therapeutic efficacy. Margaretanamika Sethi PA-C Narrative 02/08/2022 10:56 AM CDT For Patients: Results are automatically released to your [facility] account once available, in compliance with federal regulations. This means that you may see your results before your provider has had a chance to review them. Please allow 2-3 business days for your provider to comment on the results. XR DXA Bone Mineral Density (BMD) EXAM LOCATION: [address] [address] PATIENT NAME: Hamida Diaz DATE OF : 1950 EXAM DATE: 02/07/2022 REQUESTING PROVIDER: Arron Lima MD GENDER AT : female HEIGHT: 5' 3.19 (02/06/2022) WEIGHT: ??125 lb 3.2 oz (02/06/2022) MENOPAUSAL STATUS: Postmenopausal RACE/ETHNICITY: White RISK FACTORS: History of Fragility Fracture (at a major site), Weight < 127 lbs. and White Race CURRENT MEDICATION FOR BONE LOSS: NONE INDICATION: Post-Menopause COMPARISON DATE(S): 2014 DXA scans are compared to prior studies for a patient only when the two (or more) studies were performed on the same scanner. It is not possible to compare data generated on one scanner to data from another because there are not standards in DXA equipment. This applies even if the two scanners are made by the same chlorinator operator. PROCEDURE: Dual-energy x-ray absorptiometry performed with routine technique. Reporting is completed in the form of a T-score. The T-score represents the standard deviation from peak bone mass based on young healthy adult. A Z-score is used for diagnosis in premenopausal women, and for men under the age of 50. FINDINGS: RESULT LUMBAR SPINE L1 - L4 BMD: 0.787 g/cm2 T-Score: - 3.3 Z-Score: - 1.3 Change from prior in 2015: ??Decrease 3.0%. RESULTS FEMUR Left femoral neck BMD: 0.774 g/cm2 T-Score: - 1.9 Z-Score: + 0.0 Change from prior in 2014: ??Decrease 3.6%. Right femoral neck BMD: 0.804 g/cm2 T-Score: - 1.7 Z-Score: + 0.3 Change from prior in 2015: ??Decrease 4.1%. Left hip BMD: 0.733 g/cm2 T-Score: - 2.2 Z-Score: - 0.4 Change from prior in 2014: ??Decrease 9.7%. Right hip BMD: 0.781 g/cm2 T-Score: - 1.8 Z-Score: - 0.1 Change from prior in 2014: ??Decrease 7.5%. WHO criteria: Normal: T-score at or above -1 SD Osteopenia: T-score between -1.1 and -2.4 SD Osteoporosis: T-score at or below -2.5 SD FRAX RISK CALCULATION (USED FOR OSTEOPENIA ONLY): 10-year probability of major osteoporotic fracture: 17.2%. 10-year probability of hip fracture: 3.5%. Arron Lima MD DEXA * XR MAMMO NICOLA BILAT SCREEN (02/07/2022 10:50 AM CDT) Anatomical Region Laterality Modality BREASTS, Breast Left, Breast Right Bilateral Mammography Impressions 02/07/2022 3:29 PM CDT ??There is no radiographic evidence for malignancy. ??Recommend annual mammograms. MAMMOGRAM ASSESSMENT: ??ACR 1 Negative PATIENTS: You will also receive a letter with your examination results in an easy to read format. ??If you have questions about your results, please contact your referring provider. Narrative 02/07/2022 3:29 PM CDT For Patients: As a result of the 21st Century Cures Act, medical imaging exams and procedure reports are released immediately into your electronic medical record. You may view this report before your referring provider. If you have questions, please contact your health care provider. XR MAMMO NICOLA BILAT SCREEN [[id number]] CLINICAL HISTORY: ??This is an asymptomatic 71 y.o. patient. INDICATION FOR EXAM: Mammogram Screening. TECHNIQUE: CC & MLO views were obtained. ??This study was evaluated with the assistance of Computer-Aided Detection. Breast Tomosynthesis was used in interpretation. COMPARISON FILM: Yes 09/24/16 [facility] 10/21/14 [facility] FINDINGS: ??The breasts are heterogeneously dense, which may obscure small masses. There are no dominant masses, suspicious micro calcifications or areas of architectural distortion. Arron Lima MD MAMMO * ANTI HCV (09/24/2016 8:31 AM MANAGER SALES SUPPORT) HEPATITIS C ANTIBODY Non-Reacti ve Non-Reacti ve 09/24/2016 2:05 PM MANAGER SALES SUPPORT [facility] Blood BLOOD SPECIMEN / Unknown Venipuncture / Unknown 09/24/2016 8:31 AM MANAGER SALES SUPPORT 09/24/2016 8:31 AM MANAGER SALES SUPPORT Narrative [facility] - 09/24/2016 2:05 PM MANAGER SALES SUPPORT Antibodies to HCV not detected; does not exclude the possibility of exposure to HCV. Arron Lima MD SEND OUTS [facility] [address] [place] [address], [place] from Last 3 Months or Most Recently Relevant to Health Maintenance Advance Directives Documents on File Type Date Recorded Patient Linoleum Printer Expl anation Healthcare Directive 06/03/2022 022 Care Teams Furniture Builder Relationship Specialty Start Date End Date Arron Lima MD [address] [place] [address] PCP - General Family Practice 08/02/15
[2024-03-15 10:36] LABS: Basophils Absolute Auto 0.02 K/uL (0.00-0.30); Basophils Percent Auto 0.3 % (0.0-3.0); Eosinophils Absolute Auto 0.26 K/uL (0.00-0.50); Eosinophils Percent Auto 3.4 % (0.0-7.0); Hematocrit 41.7 % (33.0-51.0); Hemoglobin* 13.7 gm/dL (12.0-16.0); Immature Granulocytes Abs Auto 0.01 K/uL (0.00-0.30); Immature Granulocytes Pct Auto 0.1 %; Lymphocytes Absolute Auto 1.53 K/uL (0.90-2.90); Lymphocytes Percent Auto 20.1 % (20-44); Mean Corpuscular HGB Conc 33 gm/dL (32-36); Mean Corpuscular Hemoglobin 30 pg (26-34); Mean Corpuscular Volume 90 fL (80-100); Monocytes Percent Auto 6.6 % (0.0-11.0); Neutrophils Absolute Auto 5.31 K/uL (1.7-7.0); Neutrophils Percent Auto 69.5 % (42.0-72.0); Platelet Count* 233 K/uL (140-440); RDW Coefficient of Variation % 13.1 % (11.5-15.5); Red Blood Count 4.65 m/uL (4.00-5.20); White Blood Count* 7.63 K/uL (4.50-11.00)
[2024-03-15 10:36] LABS: Lactate* 1.7 mmol/L (0.5-1.9)
[2024-03-15 10:37] LABS: Slide Review Reflex No
[2024-03-15 10:52] LABS: Chloride* 106 mmol/L (96-114)
[2024-03-15 10:53] LABS: Potassium* 3.9 mmol/L (3.6-5.1); Sodium* 141 mmol/L (135-149)
[2024-03-15 10:55] VITALS: BP 151/79; PULSE 67; RESP 18; O2SAT 99
[2024-03-15 10:55] LABS: Creatinine* 0.7 mg/dL (0.5-1.5); Est. Creatinine Clearance* 46.64; Estimated Glomerular Filt Rate 91 ml/min
[2024-03-15 10:56] LABS: Anion Gap 6 mEq/L (7-15); Blood Urea Nitrogen* 16 mg/dL (7-30); Calcium* 9.3 mg/dL (8.4-10.6); Carbon Dioxide* 29 mmol/L (20-32); Glucose* 96 mg/dL (60-115)
--- NOTE | 2024-03-15 10:58 | CRLHL7_ITS ---
For Patients: As a result of the Century Cures Act, medical imaging exams and procedure reports are released immediately into your electronic medical record. You may view this report before your referring provider. If you have questions, please contact your health care provider. Indication: Left face and arm weakness. Dizziness. Technique: Multiplanar, multisequence MRI of the brain was performed without intravenous contrast. Comparison: None relevant available. Findings: The corpus callosum, pituitary gland and clivus appear intact. Mild degenerative change visualized upper cervical spine. There is no restricted diffusion. No intracranial hemorrhage. The ventricles are proportionate to the cerebral sulci. The 4th ventricle appears midline. The basal cisterns appear patent. No abnormal extra-axial fluid collection identified. Mild parenchymal volume loss. Mild scattered T2 FLAIR hyperintense foci within the subcortical and periventricular white matter, favored to represent chronic ischemic microvascular disease. There is no intracranial mass, abnormal mass-effect or midline shift identified. Major intracranial vascular flow voids appear grossly intact. Thinning of the ocular lenses. Mild paranasal sinus mucosal disease. Impression: 1. No acute/subacute infarct. 2. Mild chronic ischemic microvascular disease. Dictated by Jesus Pearce MD @ 03/15/2024 11:51:06 AM (Electronically Signed)
[2024-03-15 11:03] LABS: INR 0.92 (0.91-1.10); Prothrombin Time 12.9 Seconds
[2024-03-15] MEDS: CLOPIDOGREL 300 MG TABLET PO (11:13)
[2024-03-15] MEDS: 0.9 % SODIUM CHLORIDE 1000 ml 1,000 ML IV (11:13)
[2024-03-15 11:55] VITALS: BP 156/79; PULSE 77; RESP 18; O2SAT 98
[2024-03-15 12:00] LABS: Troponin I* < 0.01 ng/mL (0.01-0.04)
[2024-03-15] MEDS: ASPIRIN EC 325 MG TABLET PO (12:00)
[2024-03-15 12:20] VITALS: BP 144/78; PULSE 71; O2SAT 97
== END 2024-03-15 13:01 | disposition home or self-care (01) ==
PROVIDERS: Emergency Provider Emergency Medicine; PCP Family Medicine
DX: G45.9 Transient cerebral ischemic attack, unspecified (principal); K11.8 Other diseases of salivary glands
CPT/HCPCS: 36415; 70450; 70496; 70498; 70551; 80048; 82565; 83605; 84484; 85025; 85610; 93005; 96360; 99284; 99285; A9270; J7030; Q9967

== ENCOUNTER 2024-04-12 15:15 | Outpatient (RCR) | payer OTHER, SELFPAY | END 2024-06-30 11:06 | disposition home or self-care (01) | PROVIDERS: PCP Family Medicine; Visit Provider Nurse Practitioner Adult Health | DX: G45.9 Transient cerebral ischemic attack, unspecified (principal); R26.81 Unsteadiness on feet; R53.83 Other fatigue; Z51.89 Encounter for other specified aftercare | CPT/HCPCS: 97112; 97161 ==

== ENCOUNTER 2024-04-23 08:00 | Outpatient (CLI) | payer OTHER, SELFPAY ==
--- OUTSIDE RECORDS SUMMARY | 2024-04-23 08:02 | XMS_ITS | Clinical Summary ---
Author Organization [employer] [facility] [employer] [facility] Address [place], [place] [address] Care Team Providers Care Software Engineer Name Role Phone Arron Lima MD Primary Care Provider Allergies No known active allergies Medications Medication Sig Dispensed Refills Start Date End Date Status CALCIUM + VITAMIN D 600 MG (1,500)-200 UNIT TABIndications:Ost eoporosis, unspecified 0 05/30/2008 Active clopidogreL (PLAVIX) 75 mg tablet Take 75 mg by mouth once daily in the morning. 03/15/2024 Active aspirin 325 mg tablet Take 325 mg by mouth once daily with a meal. Active atorvastatin (LIPITOR) 20 mg tabletIndications: TIA (transient ischemic attack),Hyperlipid emia LDL goal <70 Take 1 Tablet (20 mg) by mouth once daily. 90 Tablet 1 03/30/2024 Active acetaZOLAMIDE (DIAMOX) 125 mg tabletIndications: Counseling about travel Take 125-250 mg by mouth two times daily. Begin 1 day before through 2 days after arriving at highest altitude. 10 Tablet 11/21/2023 03/30/2024 Discontinued (*Patient states no longer taking) typhoid vaccin,live,attenu ated (Vivotif Martha Vaccine) 2 billion unit capsuleIndications :Typhoid-paratypho id vaccination Take 1 capsule by mouth with lukewarm water on empty stomach on days 1,3,5 and 7. 4 Capsule 11/21/2023 03/30/2024 Discontinued (*Patient states no longer taking) Active Problems Problem Noted Date Diagnosed Date TIA 03/15/24 left arm wk, tingle, left face droop . 03/18/2024 Prediabetes 06/01/2018 Trigger finger 10/22/2014 Breast cancer 04/09/2011 Overview: Left breast cancer. 02/2011 1. Infiltrating ductal carcinoma with apocrine features a. Fries grade: II of III, Carlin score: 6 of 9 b. Angio-lymphatic invasion: [...] Encounters Date Type Department Care Team Description 04/20/2024 Medical Messaging [facility] [address] [place] [address] Arron Lima MD Ultrasound results 04/1604/20/2024 Telephone [facility] [address] [facility] [address] [place] [address] Matilda Galicia NP Results 04/16/2024 11:00 AM CDT Ancillary Procedure [facility] [address] [place] [id number] 04/16/2024 9:45 AM CDT Ancillary Procedure [facility] [address] [place] [address] 04/16/2024 9:00 AM CDT Ancillary Procedure [facility] [address] [facility] [place] [address] 04/16/2024 Travel 03/30/2024 12:30 PM CDT Office Visit [facility] [address] [place] [address] Matilda Galicia NP Consult 03/30/2024 Telephone [facility] [address] [place] [address] Arron Lima MD Lab (Need Orders) 03/30/2024 Travel 03/23/2024 7:00 AM CDT Orders Only [facility] [address] [place] [address] Lab 03/19/2024 8:15 AM CDT Office Visit [address] [place] [address] 03/18/2024 4:10 PM CDT Office Visit [facility] [address] [place] [address] Arron Lima MD Medicare ANNUAL (subsequent) Visit (73 year old); ER Follow up ([employer] [facility], 03/15/2024, TIA); Arm Pain/problem (Left shoulder pain, started beginning of January 2024 while hiking); Dizziness (Lightheadedness, on and off, started several months ago) 03/18/2024 Travel 03/16/2024 Telephone [facility] [address] [place] [address] Lottie Sherman NP Hospital F/U 03/15/2024 Orders Only [facility] Scanner 1 scan: (1-Ord) [facility], HEAD/BRAIN W/O CONT, 03/15/2024 03/15/2024 Orders Only [facility] Scanner 1 scan: (1-Ord) [facility], CT ANGIO NECK, 03/15/2024 03/15/2024 Orders Only [facility] Scanner 1 scan: (1-Ord) [facility], HEAD/BRAIN WO CONTAST, 03/15/2024 03/15/2024 Orders Only [facility] Scanner 1 scan: (1-Ord) [facility], CT HEAD/BRAIN WO CON, 03/15/2024 03/15/2024 Nurse Triage [facility] [address] [place] [address] Connie Suarez, RN Stroke (Patient walked in thinking she is having a stroke/) 03/12/2024 Orders Only [facility] Scanner 1 scan: (1-Ord) [facility], CT ANGIO HEAD, 03/12/2024 from Last 3 Months Immunizations Name Administration Dates Next Due COVID-19 Vaccine Spikevax (M oderna 50mcg/0.5mL) 12YO+ 8550-5367 Formula PF 03/18/2024 COVID-19 vaccine (Moderna 100mcg/0.5mL) PF, MDV 12/31/2021 COVID-19 vaccine (naaptolBio NTech 30mcg/0.3mL) 12YO+ BIVALENT PF, MDV 02/11/2023 COVID-19 vaccine (naaptolBio NTech 30mcg/0.3mL) PF, MDV 06/21/2021,12/12/2020,11/21/2020 HepA-HepB (Twinrix) 12/22/2023,11/21/2023 Influenza, High-dose Quadriv alent Inactivated 07/22/2023,07/22/2022,06/20/2021,2019 Td (Age >=7 Years) 05/30/2001 Tdap 02/05/2021,06/19/2009 Zoster (Shingrix-RZV, recombinant) 04/23/2019, Zoster (Zostavax-ZVL, live) 09/07/2012 Family History Medical History Relation Name Comments Other Brother leukemia, of mva at 90. Heart Disease Father probably late 50's Stomach cancer Father d81 Cancer-breast Maternal Aunt Stroke Maternal Aunt Dementia Mother Heart Disease Mother [...] ca ncer Maternal Aunt Mother (Age 80) [place] Neg. 1 Neg. 2 Sister 1 Sister 2 Sister 3 Social History Tobacco Use Types Packs/Day Years Used Date Smoking Tobacco: Never Smokeless Tobacco: Never Tobacco Cessation:Counseling Given: No Alcohol Use Standard Drinks/Week Comments Yes 0 (1 standard drink = 0.6 oz pur e alcohol) 1-2 times a month PHQ-2 Answer Date Recorded PHQ-2 TOTAL SCORE 0 03/18/2024 Social Connections Answer Date Recorded Frequency of [...] Sign Reading Time Taken Comments Blood Pressure 152/88 03/30/2024 2:05 PM CDT Pulse 79 03/30/2024 2:05 PM CDT Temperature 36.4 ??C (97.5 ??F) 11/21/2023 1:09 PM CS T Respiratory Rate - - Oxygen Saturation 98% 03/18/2024 4:11 PM CDT Inhaled Oxygen Concentration - - Weight 56.2 kg (124 lb) 03/30/2024 12:23 PM CDT Height 162.6 cm (5' 4) 03/30/2024 12:23 PM CDT Body Mass Index 21.28 03/30/2024 12:23 PM CDT Plan of Treatment Upcoming Encounters Date Type Department Care Team (Late st Contact Info) Description 05/27/2024 1:30 PM CDT Nurse/Clinic Staff Only [facility] [address] [place] [address] Health Maintenance Due Date Last Done Comments Pneumococcal series for age 65+ (1 of 1 - PCV) 2015 Influenza for age 65+ 05/23/2024 07/22/2023 , 07/22/2022, 06/20/2021, Additional history exists Medicare Wellness for age 65+ 03/19/2025, 02/11/2023, 02/06/2022, Additional history exists Fecal testing non-DNA (FIT,FOBT,iFOBT) for age 45-75 03/23/2025 03/23/2024, 02/15/2023, 11/10/2021, Additional history exists BMI (ht and wt on same day) for age 18+ 03/30/2025 03/30/2024, 03/18/2024, 05/19/2023, Additional history exists Depression screening for age 12+ 03/30/2025 03/30/2024, 03/18/2024, 03/16/2024, Additional history exists Mammogram for age 45-75 04/16/2025 04/16/20 24, 02/07/2022, 09/24/2016, Additional history exists Lipids for age 45-75 03/18/2029 03/18/2024, 02/11/2023, 02/06/2022, Additional history exists Tetanus booster 02/05/2031 02/05/2021, 05/24, 05/30/2001 Hepatitis C screening for ag e 18-79 Completed 09/24/2016 Zoster (shingles) series for age 50+ Completed 04/23/2019, 12/15/2018, 09/07/2012 Tdap Completed 02/05/2021, 06/19/2009 DEXA/DXA scan for age 65+ Completed 2021, 08/29/2015, 05/31/2010, Additional history exists COVID-19 vaccine series Completed 03/18/20 24, 07/22/2023, 02/11/2023, Additional history exists Procedures Procedure Name Priority Date/Time Associated Diagnosis Comments ECHO TTE COMPLETE WO CONTRAST Routine 04/16/2024 11:56 AM CDT TIA (transient ischemic attack) US NECK OR HEAD SOFT TISSUE Routine 04/16/2024 10:03 AM CDT Mass of left parotid gland XR MAMMO BILAT SCREENING Routine 04/16/2024 9:17 AM CDT Encounter for screening mammogram for malignant neoplasm of breast EXTENDED HOLTER Routine 04/13/2024 TIA (transient ischemic attack) OCCULT BLOOD IFOBT STOOL Routine 03/23/2024 4:12 PM CDT Screening for colon cancer TSH WITH REFLEX Routine 03/18/2024 5:13 PM CDT Fatigue, unspecified type VITAMIN D 25 (DEFICIENCY) Routine 03/18/2024 5:13 PM CDT Vitamin D insufficiency LIPID PANEL W REFLEX MEASURED LDL Routine 03/18/2024 5:13 PM CDT Hyperlipidemia, unspecified hyperlipidemia type HEMOGLOBIN A1C SCREENING Routine 03/18/2024 5:13 PM CDT Prediabetes SCAN-CT INTERPRETATION 4 12:00 AM CDT SCAN-CT INTERPRETATION 4 12:00 AM CDT SCAN-MRI INTERPRETATION 03/15/2024 12:00 AM CDT SCAN-CT INTERPRETATION 4 12:00 AM CDT SCAN-CT INTERPRETATION 4 12:00 AM CDT XR DXA BONE DENSITY 2 SITES AXIAL Routine 02/07/2022 11:18 AM CDT Post-menopausal ANTI HCV Routine 09/24/2016 8:31 AM SORTING SUPERVISOR Need for hepatitis C screening test from Last 3 Months or Most Recently Relevant to Health Maintenance Results * ECHO TTE COMPLETE WO CONTRAST (04/16/2024 11:56 AM CDT) AORTIC VALVE MEAN PG 3 mmHg EJECTION FRACTION 59 % LVEDD 3.7 cm Anatomical Region Laterality Modality Ultrasound 04/16/2024 11:2 3 AM CDT Narrative 04/16/2024 12:16 PM CDT ECHOCARDIOGRAM HAMIDA DIAZ ?Accession#: ?? [id number] : ?1950 73 years Study Date: ?? 04/16/2024 11:23:47 AM Gender: F ? BP: ? 152/60 mmHg Height: 163.00 cm ? BSA: ?1.60 m? ? ? Weight: 56.00 kg ?Tech: ? MSR ?Referring MD: ARRON LIMA Site: ? [facility] Reading Location: Mobile OP Patient Location: Outpatient. Procedure: 2D, Color Doppler and Spectral Doppler. Indication for study: TIA (transient ischemic attack) Cardiac Rhythm: Regular and Went into irregular rhythms once or twice.Study quality: Good. Final Impressions: 1. Normal left ventricular size, borderline wall thickness, normal global systolic function, calculated EF of 59 %. 2. Right ventricular cavity size is normal, global systolic RV function is normal. 3. No significant valve disease detected. Chamber Sizes and Function Normal left ventricular size, borderline wall thickness, normal global systolic function, calculated EF of 59 %. Left atrial size is normal. Right ventricular cavity size is normal, global systolic RV function is normal. The right atrium is normal. The pulmonary artery is of normal size and origin. The sinus of Valsalva is normal sized. The ascending aorta is normal sized. Valves, RV Pressures and Diastolic Function The aortic valve is trileaflet, no stenosis and no regurgitation. The mitral valve is normal in structure, no mitral regurgitation. Normal diastolic function. The tricuspid valve is normal in structure. Tricuspid regurgitation is regurgitation is not evident. The pulmonic valve is normal. No pulmonary regurgitation. Masses, Effusion, Shunts There is no pericardial effusion. The inferior vena cava is normal sized, respiratory size variation less than 50%. No left to right shunting was detected by limited color flow Doppler interrogation of the interatrial septum. MEASUREMENTS AND CALCULATIONS 2-D Measurements and LV Function: LVID (d) 3.7 cm Planimetered EF 59 % LVID (s) 2.8 cm LV FS% (2D) ? 25 % IVS (d) ??1.2 cm LVOT diameter ?? 2.0 cm LVPW (d) 1.2 cm HR ?66 bpm Ao Sinus 2.8 cm LA Vol index ?19 ml/m2 Asc Ao ?? 3.3 cm RV Max 4C (d) ?? 3.3 cm Diastology: Mitral ?Tissue Doppler E Peak 0.5 m/s ??e', Septum ? 0.06 m/s A Peak 1.0 m/s ??e', Lateral ?0.06 m/s E/A ?0.5 ?E/e' Average ?? 9.35 DT ? 216 msec Aortic Valve: Vmax ? 1.2 m/s ??ISAMAR (V) ?? 2.20 cm? ? ? VTI ?0.27 m ?? ISAMAR (I) ?? 2.01 cm? ? ? LVOT V max 0.8 m/s ??Max PG ?6 mmHg LVOT VTI ?? 0.18 m ?? Mean PG ?? 3 mmHg SV ? 55 ml ?Dim Index 0.65 SV index ?? 34 ml/m? ? ? CO ?3.6 l/min ?CI ?2.3 l/min/m? ? ? Mitral Valve: MVA ?3.5 cm? ? ? MV P 1/2 63 msec Tricuspid Valve and estimated PA pressures: TAPSE 2.1 cm . This study was interpreted by an [facility] accredited facility. ??Final ?? Procedure Note Jeremías Keith MD - 04/16/2024 ECHOCARDIOGRAM HAMIDA DIAZ : 1950 73 years Study Date: 04/16/2024 11:23:47 AM Gender: F BP: 152/60 mmHg Height: 163.00 cm BSA: 1.60 m? ? ? Weight: 56.00 kg Tech: MSR Referring MD: ARRON LIMA Site: [facility] Reading Location: Mobile OP Patient Location: Outpatient. Procedure: 2D, Color Doppler and Spectral Doppler. Indication for study: TIA (transient ischemic attack) Cardiac Rhythm: Regular and Went into irregular rhythms once ortwice.Study quality: Good. Final Impressions: 1. Normal left ventricular size, borderline wall thickness, normal globalsystolic function, calculated EF of 59 %. 2. Right ventricular cavity size is normal, global systolic RV functionis normal. 3. No significant valve disease detected. Chamber Sizes and Function Normal left ventricular size, borderline wall thickness, normal globalsystolic function, calculated EF of 59 %. Left atrial size is normal.Right ventricular cavity size is normal, global systolic RV function isnormal. The right atrium is normal. The pulmonary artery is of normal sizeand origin. The sinus of Valsalva is normal sized. The ascending aorta isnormal sized. Valves, RV Pressures and Diastolic Function The aortic valve is trileaflet, no stenosis and no regurgitation. Themitral valve is normal in structure, no mitral regurgitation. Normaldiastolic function. The tricuspid valve is normal in structure. Tricuspidregurgitation is regurgitation is not evident. The pulmonic valve isnormal. No pulmonary regurgitation. Masses, Effusion, Shunts There is no pericardial effusion. The inferior vena cava is normal sized,respiratory size variation less than 50%. No left to right shunting wasdetected by limited color flow Doppler interrogation of the interatrialseptum. MEASUREMENTS AND CALCULATIONS 2-D Measurements and LV Function: LVID (d) 3.7 cm Planimetered EF 59 % LVID (s) 2.8 cm LV FS% (2D) 25 % IVS (d) 1.2 cm LVOT diameter 2.0 cm LVPW (d) 1.2 cm HR 66 bpm Ao Sinus 2.8 cm LA Vol index 19 ml/m2 Asc Ao 3.3 cm RV Max 4C (d) 3.3 cm Diastology: Mitral Tissue Doppler E Peak 0.5 m/s e', Septum 0.06 m/s A Peak 1.0 m/s e', Lateral 0.06 m/s E/A 0.5 E/e' Average 9.35 DT 216 msec Aortic Valve: Vmax 1.2 m/s ISAMAR (V) 2.20 cm? ? ? VTI 0.27 m ISAMAR (I) 2.01 cm? ? ? LVOT V max 0.8 m/s Max PG 6 mmHg LVOT VTI 0.18 m Mean PG 3 mmHg SV 55 ml Dim Index 0.65 SV index 34 ml/m? ? ? CO 3.6 l/min CI 2.3 l/min/m? ? ? Mitral Valve: MVA 3.5 cm? ? ? MV P 1/2 63 msec Tricuspid Valve and estimated PA pressures: TAPSE 2.1 cm . This study was interpreted by an [facility] accredited facility. Final Arron Lima MD ECHO ORD * US NECK OR HEAD SOFT TISSUE (04/16/2024 10:03 AM CDT) Anatomical Region Laterality Modality NECK Ultrasound 04/16/2024 3:11 PM CDT Narrative 04/16/2024 3:11 PM CDT For Patients: ??As a result of the Century Cures Act, medical imaging exams and procedure reports are released immediately into your electronic medical record. ??You may view this report before your referring provider. ??If you have questions, please contact your health care provider. INDICATION: Left parotid gland mass. TECHNIQUE: Directed soft tissue ultrasound of the left parotid gland without a radiologist present. FINDINGS: There is a fairly well-circumscribed 1.4 x 1.2 x 1.3 cm solid nodule within what appears to reflect the superficial portion of the left parotid gland. This demonstrates minimal blood flow one edge. A primary parotid gland neoplasm is in the differential. Fine-needle aspiration/biopsy is recommended. IMPRESSION : Solid well-circumscribed slightly lobulated 1.4 x 1.2 x 1.3 cm mass within the left parotid gland. Ultrasound-guided fine needle aspiration/biopsy may be helpful for further evaluation. Dictated by Price Wei MD @ 04/16/2024 3:11:16 PM (Electronically Signed) Procedure Note Price Wei MD - 04/16/2024 For Patients: As a result of the Cures Act, medical imagingexams and procedure reports are released immediately into your electronicmedical record. You may view this report before your referring provider.If you have questions, please contact your health care provider. INDICATION: Left parotid gland mass. TECHNIQUE: Directed soft tissue ultrasound of the left parotid gland without aradiologist present. FINDINGS: There is a fairly well-circumscribed 1.4 x 1.2 x 1.3 cm solid nodulewithin what appears to reflect the superficial portion of the left parotidgland. This demonstrates minimal blood flow one edge. A primary parotid glandneoplasm is in the differential. Fine-needle aspiration/biopsy isrecommended. IMPRESSION : Solid well-circumscribed slightly lobulated 1.4 x 1.2 x 1.3 cm mass withinthe left parotid gland. Ultrasound-guided fine needle aspiration/biopsy may be helpful for furtherevaluation. Dictated by Price Wei MD @ 04/16/2024 3:11:16 PM (Electronically Signed) Arron Lima MD US * XR MAMMO BILAT SCREENING (04/16/2024 9:17 AM CDT) Anatomical Region Laterality Modality BREASTS, Breast Left, Breast Right Bilateral Mammography Impressions 04/19/2024 11:28 AM CDT ??There is no radiographic evidence for malignancy. ??Recommend annual mammograms. MAMMOGRAM ASSESSMENT: ??ACR 2 Benign PATIENTS: You will also receive a letter with your examination results in an easy to read format. ??If you have questions about your results, please contact your referring provider. Narrative 04/19/2024 11:28 AM CDT For Patients: As a result of the Century Cures Act, medical imaging exams and procedure reports are released immediately into your electronic medical record. You may view this report before your referring provider. If you have questions, please contact your health care provider. XR MAMMO BILAT SCREENING [[id number]] CLINICAL HISTORY: ??This is an asymptomatic 73 y.o. patient. INDICATION FOR EXAM: Mammogram Screening. TECHNIQUE: CC & MLO views were obtained. ??This study was evaluated with the assistance of Computer-Aided Detection. COMPARISON FILMS: Yes 02/07/22 [facility] 09/24/16 [facility] FINDINGS: ??The breasts are heterogeneously dense, which may obscure small masses. ??No suspicious masses or microcalcifications. ??There are post treatment changes of left breast. Arron Lima MD MAMMO * EXTENDED HOLTER (04/13/2024) Arron Lima MD CARDIAC SERVIC ES ORD * OCCULT BLOOD IFOBT STOOL (03/23/2024 4:12 PM CDT) STOOL BLOOD ,IFOBT Negative Negative 04/02/2024 10:21 AM CDT [facility] Stool STOOL SPECIMEN / Unknown Non-Blood / Unknown 03/23/2024 4:12 PM CDT 03/31/2024 4:12 PM CDT Arron Lima MD LABORATORY [facility] [address] [place] [address], * HEMOGLOBIN A1C SCREENING (03/18/2024 5:13 PM CDT) HEMOGLOBIN A1C SCREENING 6.0 <=6.4 % 03/19/2024 5:14 PM CDT [facility] Blood BLOOD SPECIMEN / Unknown Venipuncture / Unknown 03/18/2024 5:13 PM CDT 03/18/2024 5:13 PM CDT Narrative [facility] - 03/19/2024 5:14 PM CDT ? (<5.7%) ?Normal ? (5.7% to 6.4%) ? Indicates prediabetes ? (>=6.5%) ? Confirms diabetes Falsely low levels may be seen with: Recent Transfusion, Recent Significant Blood Loss, Hemolytic Diseases, or Falsely elevated levels may be seen with: Untreated Anemias, Splenectomy Arron Lima MD CHEMISTRY Performing Organization Address [facility] de Phone Number [facility] [address] [address], [place] * TSH WITH REFLEX (03/18/2024 5:13 PM CDT) TSH 4.14 0.27 - 4.20 uIU/mL 03/19/2024 5:07 PM CDT [facility] Blood BLOOD SPECIMEN / Unknown Venipuncture / Unknown 03/18/2024 5:13 PM CDT 03/18/2024 5:13 PM CDT Narrative [facility] - 03/19/2024 5:07 PM CDT In Adults, TSH values between 5.00 and 10.00 uIU/ml do not necessarily indicate the presence of Hypothyroidism. Correlation with clinical findings such as presence of goiter and/or Thyroperoxidase (TPO) Antibody may be helpful. For more information please refer to MÓNICA 2004; 291: 228-238. Arron Lima MD CHEMISTRY Performing Organization Address [facility] Co de Phone Number [facility] [address] [place] [id number], [place] * (ABNORMAL) LIPID PANEL W REFLEX MEASURED LDL (03/18/2024 5:13 PM CDT) CHOLESTEROL,TOTAL 210(H) 100 - 199 mg/dL 03/19/2024 5:07 PM CDT [facility] Comment: Cholesterol, Total Reference Ranges Desirable <200 mg/dL Borderline 200-239 mg/dL High >=240 mg/dL TRIGLYCERIDES 149 <150 mg/dL 03/19/2024 5:07 PM CDT [facility] HDL CHOLESTEROL 62 >40 mg/dL 5:07 PM CDT [facility] NON-HDL CHOLESTEROL 148(H) <145 mg/dl 03/19/2024 5:07 PM CDT [facility] CHOL/HDL RATIO 3.39 <4.50 03/19/2024 5:07 PM CDT [facility] LDL CHOLESTEROL 118 <=130 mg/dL 03/19/2024 5:07 PM CDT [facility] VLDL CHOLESTEROL 30 <=30 mg/dL 03/19/2024 5:07 PM CDT [facility] PROVIDER ORDERED STATUS RANDOM 03/19/2024 5:07 PM CDT [facility] Blood BLOOD SPECIMEN / Unknown Venipuncture / Unknown 03/18/2024 5:13 PM CDT 03/18/2024 5:13 PM CDT Arron Lima MD CHEMISTRY [facility] [address] [place] [address], * VITAMIN D 25 (DEFICIENCY) (03/18/2024 5:13 PM CDT) VITAMIN D TOTAL 43.9 20.0 - 80.0 ng/mL 03/19/2024 5:42 PM CDT [facility] Blood BLOOD SPECIMEN / Unknown Venipuncture / Unknown 03/18/2024 5:13 PM CDT 03/18/2024 5:13 PM CDT Narrative [facility] - 03/19/2024 5:42 PM CDT ? Vitamin D Status Deficiency: ? <20 ng/mL Insufficiency: ?20-29 ng/mL Sufficiency: ?30-80 ng/mL Possible Toxicity: ??>80 ng/mL Based on [employer] recommendations Biotin supplements may cause clinically significant interference for this test assay. ??If interference is suspected, it is strongly recommended that biotin is discontinued for at least one week prior to retesting. Arron Lima MD SEND OUTS [facility] [address] [place] [address], * SCAN-MRI INTERPRETATION (03/15/2024 12:00 AM CDT) Anatomical Region Laterality Modality Other Scanner OTHER * SCAN-CT INTERPRETATION (03/15/2024 12:00 AM CDT) Only the most recent of4 resultswithin the time period is included. Anatomical Region Laterality Modality Other Scanner OTHER * (ABNORMAL) XR DXA BONE DENSITY 2 [...] Patients: Results are automatically released to your [employer] account once available, in compliance with federal regulations. This means that you may see your results before your provider has had a chance to review them. Please allow 2-3 business days for your provider to comment on the results. XR DXA Bone Mineral Density (BMD) EXAM LOCATION: [facility] [address] [facility] [address] PATIENT NAME: Hamida Diaz DATE OF : [...] two scanners are made by the same engineering clerk. PROCEDURE: Dual-energy x-ray absorptiometry performed with routine [...] Z-Score: - 0.4 Change from prior in 2015: ??Decrease 9.7%. Right hip BMD: 0.781 g/cm2 T-Score: - 1.8 Z-Score: - 0.1 Change from prior in 2015: ??Decrease 7.5%. WHO criteria: Normal: T-score at or above -1 SD Osteopenia: T-score between -1.1 and -2.4 SD Osteoporosis: T-score at or below -2.5 SD FRAX RISK CALCULATION (USED FOR OSTEOPENIA ONLY): 10-year probability of major osteoporotic fracture: 17.2%. 10-year probability of hip fracture: 3.5%. Arron Lima MD DEXA * ANTI HCV (09/24/2016 8:31 AM SORTING SUPERVISOR) HEPATITIS C ANTIBODY Non-Reacti ve Non-Reacti ve 09/24/2016 2:05 PM SORTING SUPERVISOR [facility] Blood BLOOD SPECIMEN / Unknown Venipuncture / Unknown 09/24/2016 8:31 AM SORTING SUPERVISOR 09/24/2016 8:31 AM SORTING SUPERVISOR Narrative [facility] - 09/24/2016 2:05 PM SORTING SUPERVISOR Antibodies to HCV not detected; does not exclude the possibility of exposure to HCV. Arron Lima MD SEND OUTS [facility] 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
--- NOTE | 2024-04-23 08:15 | CRLHL7_ITS ---
For Patients: As a result of the Century Cures Act, medical imaging exams and procedure reports are released immediately into your electronic medical record. You may view this report before your referring provider. If you have questions, please contact your health care provider. ULTRASOUND-GUIDED CORE NEEDLE BIOPSY OF LEFT PAROTID MASS. CLINICAL HISTORY: Indeterminate solid nodule within the left parotid gland, palpable COMPARISON STUDIES: 04/16/2024 TECHNIQUE: Real-time ultrasound with image documentation was used for targeting the left parotid lesion. Core biopsy specimens were obtained using an automated gun with a 18 gauge biopsy needle. CONSENT and TIME OUT: The procedure, risks, and alternatives were explained to the patient and a consent was signed. [place] Protocol was followed including pre-procedure verification that relevant information/documentation was available, reviewed and properly matched to the patient; consent accurate and complete; and equipment and supplies available. Time Out was conducted just prior to starting procedure to verify the four required elements: patient identity, correct side/site marked (if applicable), procedure, relevant images/results properly labeled and displayed (if applicable). PROCEDURE: The patient was positioned supine on the ultrasound table. The left side of the neck was prepped with ChloraPrep. 5 cc of 1 percent lidocaine used for local anesthesia. Core samples were obtained. The specimens were placed in 10% formalin and sent to the pathology department. Pressure was held on the biopsy site until all bleeding subsided. The skin incision was closed with Steri-Strips. LATERALITY: Left parotid gland LESION: Hypoechoic solid lesion within the left parotid measuring 1.2 cm. SUSPICION FOR MALIGNANCY: Moderate NUMBER OF SAMPLES: 5 IMPRESSION: Ultrasound-guided left parotid lesion biopsy. Dictated by Jeremías Tony MD @ 04/23/2024 12:22:25 PM (Electronically Signed)
== END 2024-04-23 08:01 | disposition home or self-care (01) ==
LOC: US 08:00
PROVIDERS: PCP Family Medicine; Visit Provider Family Medicine
DX: K11.8 Other diseases of salivary glands (principal)
CPT/HCPCS: 42400; 76942; 88305; 88341; 88342; A4649

== ENCOUNTER 2024-08-02 13:30 | Outpatient (RCR) | payer OTHER, SELFPAY | END 2024-11-22 14:52 | disposition home or self-care (01) | PROVIDERS: PCP Family Medicine; Visit Provider Family Medicine | DX: M54.12 Radiculopathy, cervical region (principal); Z51.89 Encounter for other specified aftercare | CPT/HCPCS: 97110; 97140; 97162 ==